=== PATIENT | female | born 1980 | race African-American/Black ===

== ENCOUNTER 2016-09-04 21:37 | Emergency (ER) | payer OTHER ==
[~2016-09-04] VITALS: Ht 177.8 cm; Wt 63.5 kg
[~2016-09-04 21:37] MED LIST: AMIT100T2 PO; IBUP-1481 PO; OXYC-34 PO
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
[2016-09-04] MEDS ORDERED: OXYCODONE/APAP 5-325 MG TABLET PO ONE (23:00)
[2016-09-04] MEDS ORDERED: OXYCODONE/APAP 5-325 MG TABLET ONE (23:05)
--- NOTE | 2016-09-05 01:00 | NUR ---
Patient discharged to home in stable conditon. Written and verbal after care instructions given. Patient verbalizes understanding of instructions. WALKED OUT OF ER WITH STEADY GAIT WITH NO DISTRESS NOTED
[2016-09-05 01:36] VITALS: BP 115/72
== END 2016-09-05 01:37 | disposition home or self-care (01) ==
LOC: ER 21:39
DX: S16.1XXA Strain of muscle, fascia and tendon at neck level, initial encounter (principal); S39.012A Strain of muscle, fascia and tendon of lower back, initial encounter; G89.4 Chronic pain syndrome; G43.909 Migraine, unspecified, not intractable, without status migrainosus; F10.20 Alcohol dependence, uncomplicated; V49.9XXA Car occupant (driver) (passenger) injured in unspecified traffic accident, initial encounter; Y93.89 Activity, other specified; Y99.8 Other external cause status; Y92.89 Other specified places as the place of occurrence of the external cause
CPT/HCPCS: 72100; 72125; A4663

== ENCOUNTER 2018-11-19 02:33 | Emergency (ER) | payer OTHER ==
[~2018-11-19] VITALS: Ht 177.8 cm; Wt 62.6 kg
[~2018-11-19 02:33] MED LIST changes: -IBUP-1481 PO; +IBUP-1953 PO; +OXYC-133 PO; -OXYC-34 PO
--- NOTE | 2018-11-19 02:50 | NUR ---
Patient ambulated with stable gait. A/Ox4. Patient came for c/o right sided abd pain and left elbow pain. Patient reported a mouse scurrying around in her home and as she was trying to avoid it she tripped and injured her elbow. Respiratory even and unlabored, no cough no sob. No cardiovascular distress noted. No apparent swelling noted on left elbow.
[2018-11-19] MEDS ORDERED: ONDANSETRON 4 MG/2 ML VIAL IV ONE (03:00)
[2018-11-19] MEDS ORDERED: MORPHINE SULFATE 2 MG/1 ML DISP.SYRIN IV ONE (03:00)
[2018-11-19] MEDS ORDERED: IV NORMAL SALINE 1000 ML BAG IV ONE (03:00)
[2018-11-19] MEDS ORDERED: ONDANSETRON 4 MG/2 ML VIAL ONE (03:13)
[2018-11-19] MEDS ORDERED: MORPHINE SULFATE 4 MG/1 ML DISP.SYRIN ONE ×2 (03:13→05:39)
[2018-11-19 03:16] LABS: BASOPHILS # (AUTO) 0.1 K/uL (0.0-8.0); BASOPHILS % (AUTO) 0.8 % (0.0-2.0); EOSINOPHILS % (AUTO) 9.2 % (0.0-7.0); HEMATOCRIT 36.7 % (31.2-41.9); HEMOGLOBIN 12.4 g/dL (10.9-14.3); LYMPHOCYTES # (AUTO) 2.2 K/uL (20.0-40.0); LYMPHOCYTES % (AUTO) 20.8 % (20.5-51.5); MEAN CORPUSCULAR HEMOGLOBIN 30.2 uug (24.7-32.8); MEAN CORPUSCULAR HGB CONC 34 g/dL (32.3-35.6); MEAN CORPUSCULAR VOLUME 89.5 fL (75.5-95.3); MONOCYTES # (AUTO) 0.6 K/uL (2.0-10.0); NEUTROPHILS # (AUTO) 6.8 K/uL (1.8-8.9); NEUTROPHILS % (AUTO) 63.2 % (38.5-71.5); PLATELET COUNT (AUTO) 239 K/uL (179-408); WHITE BLOOD COUNT (AUTO) 10.7 K/uL (3.8-11.8)
[2018-11-19 03:25] LABS: CREATININE 0.8 mg/dL (0.6-1.3); POTASSIUM 3.5 mmol/L (3.5-5.1)
[2018-11-19 03:39] LABS: BILIRUBIN,DIRECT 0.1 mg/dL (0.0-0.2); BILIRUBIN,TOTAL 0.4 mg/dL (0.2-1.0); TOTAL PROTEIN, SERUM 7.1 g/dL (6.4-8.2)
[2018-11-19] MEDS ORDERED: KETOROLAC TROMETHAMINE 30 MG INJ IVP ONE (04:00)
[2018-11-19] MEDS ORDERED: KETOROLAC TROMETHAMINE 30 MG INJ ONE (04:16)
[2018-11-19 04:28] LABS: *BILIRUBIN,URIN NEGATIVE (NEGATIVE); *BLOOD, URINE NEGATIVE (NEGATIVE); *CLARITY,URINE CLEAR (CLEAR); *COLOR,URINE YELLOW (YELLOW); *KETONES,URINE NEGATIVE (NEGATIVE); *UROBILINOGEN,URINE 0.2 E.U./dl (NORMAL); LEUKOCYTE ESTERASE ,URINE TRACE (NEGATIVE); NITRITE, URINE NEGATIVE (NEGATIVE); PH,URINE 6.5 (5.0-8.0); UGLUCOSE NEGATIVE (NEGATIVE)
[2018-11-19 04:30] LABS: *URINE HCG, QUAL NEGATIVE (NEGATIVE)
[2018-11-19 04:37] LABS: RBC,URINE 0-3 /HPF (0-3)
[2018-11-19 04:38] LABS: BACTERIA,URINE NONE SEEN /HPF (NONE SEEN); SQUAMOUS EPITHELIAL CELL,UR MODERATE /HPF (NONE SEEN)
--- NOTE | 2018-11-19 05:00 | NUR ---
US tech at bedside for scan
--- NOTE | 2018-11-19 05:20 | NUR ---
[facility] contacted for unpublished results of XRAY images. [facility] stated that she will put it on the "hotline" to have it read.
[2018-11-19] MEDS ORDERED: MORPHINE SULFATE 4 MG/1 ML DISP.SYRIN IV ONE (05:30)
--- NOTE | 2018-11-19 06:23 | NUR ---
Patient discharged to home in stable conditon. Written and verbal after care instructions given. Patient verbalizes understanding of instructions. Patient ambulated with stable gait. Instructed the patient that she is not able to drive or operate machinery d/t the medications given. Patient verbalizes understanding and stated that she will call an uber to get home this morning.
[2018-11-19 06:24] VITALS: BP 110/56
== END 2018-11-19 06:24 | disposition home or self-care (01) ==
LOC: ER 02:35
DX: S52.125A Nondisplaced fracture of head of left radius, initial encounter for closed fracture (principal); R10.2 Pelvic and perineal pain; Z90.710 Acquired absence of both cervix and uterus; Z79.1 Long term (current) use of non-steroidal anti-inflammatories (NSAID); Z79.899 Other long term (current) drug therapy; W01.0XXA Fall on same level from slipping, tripping and stumbling without subsequent striking against object, initial encounter; Y93.02 Activity, running; Y92.89 Other specified places as the place of occurrence of the external cause; Y99.8 Other external cause status
CPT/HCPCS: 29105; 36415; 73080; 73090; 76856; 80048; 80076; 81000; 81001; 84703; 85025; 87086; 96374; 96375; 96376; 99284; J1885; J2270 ×2; J2405; A4663; J7030

== ENCOUNTER 2021-09-24 10:54 | Emergency (ER) | payer OTHER ==
[~2021-09-24] VITALS: Ht 177.8 cm; Wt 58.1 kg
[2021-09-24] MEDS ORDERED: MORPHINE SULFATE 4 MG/1 ML DISP.SYRIN ONE ×2 (11:38→13:15)
[2021-09-24 11:39] LABS: *BILIRUBIN,URIN NEGATIVE (NEGATIVE); *BLOOD, URINE NEGATIVE (NEGATIVE); *CLARITY,URINE CLEAR (CLEAR); *COLOR,URINE YELLOW (YELLOW); *KETONES,URINE NEGATIVE (NEGATIVE); *UROBILINOGEN,URINE 0.2 E.U./dl (NORMAL); LEUKOCYTE ESTERASE ,URINE NEGATIVE (NEGATIVE); NITRITE, URINE NEGATIVE (NEGATIVE); UGLUCOSE NEGATIVE (NEGATIVE)
[2021-09-24] MEDS ORDERED: ONDANSETRON 4 MG/2 ML VIAL ONE (11:39)
[2021-09-24 11:44] LABS: *URINE HCG, QUAL NEG (NEGATIVE)
[2021-09-24] MEDS ORDERED: IV NORMAL SALINE 1000 ML BAG IV ONE (11:45)
[2021-09-24] MEDS ORDERED: MORPHINE SULFATE 2 MG/1 ML DISP.SYRIN IV ONE (11:45)
[2021-09-24] MEDS ORDERED: ONDANSETRON 4 MG/2 ML VIAL IV ONE (11:45)
[2021-09-24 11:54] LABS: HEMATOCRIT 39.1 % (31.2-41.9); MEAN CORPUSCULAR HEMOGLOBIN 29.7 uug (24.7-32.8); MEAN CORPUSCULAR VOLUME 88.5 fL (75.5-95.3); PLATELET COUNT (AUTO) 256 K/uL (179-408)
[2021-09-24 11:58] LABS: CREATININE 0.9 mg/dL (0.6-1.3); POTASSIUM 4.1 mmol/L (3.5-5.1)
[2021-09-24 12:10] LABS: BILIRUBIN,DIRECT 0.1 mg/dL (0.0-0.2); BILIRUBIN,TOTAL 0.5 mg/dL (0.2-1.0); TOTAL PROTEIN, SERUM 7.5 g/dL (6.4-8.2)
[2021-09-24] MEDS ORDERED: MORPHINE SULFATE 4 MG/1 ML DISP.SYRIN IV ONE (13:00)
[2021-09-24] MEDS ORDERED: MORPHINE SULFATE 2 MG/1 ML DISP.SYRIN ONE (13:15)
--- NOTE | 2021-09-24 14:35 | NUR ---
PT WAS EVALUATED BY DR COVARRUBIAS. PT WAS D/C'd TO HOME. D/C INSTRUCTIONS GIVEN TO THE PT BY DR COVARRUBIAS.
[2021-09-24 14:39] VITALS: BP 128/81
== END 2021-09-24 14:40 | disposition home or self-care (01) ==
LOC: ER 10:54
DX: R10.31 Right lower quadrant pain (principal); Z90.710 Acquired absence of both cervix and uterus; Z82.49 Family history of ischemic heart disease and other diseases of the circulatory system; R94.4 Abnormal results of kidney function studies
CPT/HCPCS: 36415; 74176; 76705; 76856; 80048; 80076; 81003; 84703; 85025; 96361; 96374; 96375; 96376; 99285; J2270 ×3; J2405; J7040; A4663

== ENCOUNTER 2023-02-25 18:19 | Emergency (ER) | payer OTHER ==
[~2023-02-25] VITALS: Ht 177.8 cm; Wt 58.1 kg
[2023-02-25] MEDS ORDERED: CIPR5DRO RIGHTEYE (19:27)
[2023-02-25 19:53] VITALS: BP 130/75; TEMP 98; O2SAT 99
== END 2023-02-25 19:53 | disposition home or self-care (01) ==
LOC: ER 18:19
DX: H10.9 Unspecified conjunctivitis (principal); G43.909 Migraine, unspecified, not intractable, without status migrainosus; Z90.710 Acquired absence of both cervix and uterus; Z79.1 Long term (current) use of non-steroidal anti-inflammatories (NSAID); Z79.2 Long term (current) use of antibiotics; Z79.899 Other long term (current) drug therapy
CPT/HCPCS: A4606; A4663

== ENCOUNTER 2024-03-03 05:46 | Emergency (ER) | payer OTHER ==
[~2024-03-03] VITALS: Ht 177.8 cm; Wt 55.8 kg
[~2024-03-03 05:46] MED LIST changes: +CIPR5DRO RIGHTEYE
[2024-03-03] MEDS ORDERED: HYDROCODONE/APAP 10-325 MG TABLET ONE (10:09)
[2024-03-03] MEDS: HYDROCODONE/APAP 10-325 MG TABLET PO ONE (10:12)
[2024-03-03] MEDS ORDERED: HYDR-3980 PO (10:14)
[2024-03-03 10:26] VITALS: BP 138/88; TEMP 97; O2SAT 98
== END 2024-03-03 10:27 | disposition home or self-care (01) ==
LOC: ER 05:50
DX: S80.12XA Contusion of left lower leg, initial encounter (principal); Z86.711 Personal history of pulmonary embolism; Z90.710 Acquired absence of both cervix and uterus; Z79.899 Other long term (current) drug therapy; Z60.2 Problems related to living alone; X58.XXXA Exposure to other specified factors, initial encounter; Y93.89 Activity, other specified; Y92.89 Other specified places as the place of occurrence of the external cause; Y99.8 Other external cause status
CPT/HCPCS: A4606; A4663

== ENCOUNTER 2025-03-04 18:36 | Emergency (ER) | payer MEDICARE, OTHER ==
[~2025-03-04] VITALS: Ht 177.8 cm; Wt 59.0 kg
[~2025-03-04 18:36] MED LIST changes: +HYDR-3980 PO
[2025-03-04 18:44] VITALS: BP 121/82
[2025-03-04] MEDS ORDERED: ONDANSETRON ODT 4 MG TAB.RAPDIS ONE (19:08)
[2025-03-04] MEDS ORDERED: HYDROMORPHONE 2 MG/1 ML DISP.SYRIN ONE (19:09)
[2025-03-04] MEDS: HYDROMORPHONE 1 MG/1 ML DISP.SYRIN IM ONE (19:10)
[2025-03-04] MEDS: ONDANSETRON ODT 4 MG TAB.RAPDIS SL ONE (19:15)
[2025-03-04] MEDS ORDERED: IBUP-1490 PO (20:23)
[2025-03-04] MEDS ORDERED: HYDR-3980 PO (20:23)
[2025-03-04] MEDS ORDERED: ONDA4TAB11 PO (20:23)
[2025-03-04 20:37] VITALS: BP 118/79; O2SAT 97
== END 2025-03-04 20:37 | disposition home or self-care (01) ==
LOC: ER 18:36
DX: M54.50 Low back pain, unspecified (principal); Z87.19 Personal history of other diseases of the digestive system; Z88.7 Allergy status to serum and vaccine; Z90.710 Acquired absence of both cervix and uterus
CPT/HCPCS: A4606; A4663; J1171; Q0162